=== PATIENT | male | born 1970 | race Hispanic/Latino ===

== ENCOUNTER 2021-08-12 16:05 | Emergency (ER) | payer BC ==
--- OUTSIDE RECORDS SUMMARY | 2021-08-12 16:07 | XMS REPORT | Continuity of Care Document ---
:1970 Author Organization [facility] t Address [address] [place] [address] Dr. Durand [address] [place] [id number] Care Team Providers Name Role Phone Unavailable Unavailable Unavailable Problems This patient has no known problems. Allergies, Adverse Reactions, Alerts This patient has no known allergies or adverse reactions. Medications This patient has no known medications. Procedures This patient has no known procedures. Results This patient has no known results.
[2021-08-12] MEDS ORDERED: ASPIRIN 81 MG CHEWABLE TABLET ONE (16:48)
[2021-08-12 20:18] LABS: Absolute Lymphocytes (CBC) 2.5 K/uL (0.7-4.9); Hematocrit 44.1 % (39.6-49.0); MPV 7.5 fL (7.6-11.3); RBC Red Blood Cell Count 5.33 M/uL (4.33-5.43)
--- NOTE | 2021-08-12 20:28 | RAD REPORT ---
EXAM DESCRIPTION: RAD - Chest Single View - 08/12/2021 8:18 pm CLINICAL HISTORY: CHEST PAIN Chest pain. COMPARISON: <Comparisons> FINDINGS: Portable technique limits examination quality. The lungs are underinflated resulting in vascular crowding. The heart is normal in size. No displaced fractures. IMPRESSION: No acute intrathoracic process suspected.
[2021-08-12 20:48] LABS: Protime INR 0.95
[2021-08-12 20:51] LABS: ALT/SGPT 49 U/L (12-78); AST/SGOT 27 U/L (15-37); Albumin 3.4 g/dL (3.4-5.0); Alkaline Phosphatase 96 U/L (45-117); BUN Blood Urea Nitrogen 11 mg/dL (7-18); Bicarbonate 30 mmol/L (21-32); Bilirubin Direct 0.1 mg/dL (0-0.2); Glucose Level 143 mg/dL (74-106); Magnesium 2.3 mg/dL (1.8-2.4); Potassium 3.4 mmol/L (3.5-5.1); Protein, Total 7.9 g/dL (6.4-8.2); Sodium Level 139 mmol/L (136-145)
[2021-08-12 20:56] LABS: Bilirubin Total 0.5 mg/dL (0.2-1.0); NT PRO-BNP 24 pg/mL (<125)
--- NOTE | 2021-08-12 22:11 | RAD REPORT ---
EXAM DESCRIPTION: CT - Chest For Pe Angio - 08/12/2021 9:58 pm CLINICAL HISTORY: Chest pain. CHEST PAIN COMPARISON: No comparisons TECHNIQUE: CT angiogram of the pulmonary arteries was performed with MIP. All CT scans are performed using dose optimization technique as appropriate and may include automated exposure control or mA/KV adjustment according to patient size. FINDINGS: No evidence of pulmonary thromboembolism. No acute aortic finding demonstrated. The lungs are clear. No significant pericardial or pleural fluid. Moderate thoracic degenerative changes are present. IMPRESSION: No evidence of pulmonary thromboembolism. No acute lung findings.
[2021-08-12 22:46] LABS: Urine Blood Negative (Negative); Urine Glucose Negative (Negative); Urine Protein Negative (Negative); Urine Specific Gravity 1.015 (1.005-1.030)
--- NOTE | 2021-08-12 22:50 | ER ---
Nurse's Notes [facility] Name: Robbin Dixon Jr Age: 51 yrs Sex: Male : 1970 Arrival Date: 08/12/2021 Time: 16:07 Bed 3 Private MD: Sergei Cortez R Diagnosis: Chest pain, unspecified;Hypertensive heart disease without heart failure Presentation: 08/12 16:36 Chief complaint: Patient states: "I am having this sharp pain under my left rib area jd3 that travels straight back to my back to under my shoulder blade. it feels like every time I move it feels like something is pinching.". Coronavirus screen: At this time, the client does not indicate any symptoms associated with coronavirus-19. Ebola Screen: No symptoms or risks identified at this time. Initial Sepsis Screen: Does the patient meet any 2 criteria? No. Patient's initial sepsis screen is negative. Does the patient have a suspected source of infection? No. Patient's initial sepsis screen is negative. Risk Assessment: Do you want to hurt yourself or someone else? Patient reports no desire to harm self or others. Onset of symptoms was August 08, 2021. 16:36 Method Of Arrival: Ambulatory jd3 16:36 Acuity: VILMA 2 jd3 Historical: - Allergies: 16:38 No Known Allergies; jd3 - Home Meds: 16:38 losartan oral [Active]; jd3 - PMHx: 16:38 Hypertensive disorder; jd3 - PSHx: 16:38 None; jd3 - Immunization history:: Adult Immunizations up to date, Client reports receiving the 2nd dose of the Covid vaccine, Flu vaccine is not up to date. - Social history:: Smoking status: Patient denies any tobacco usage or history of. Screenin:24 Abuse screen: Denies threats or abuse. Denies injuries from another. Nutritional lp1 screening: No deficits noted. Tuberculosis screening: No symptoms or risk factors identified. Fall Risk None identified. Assessment: 20:00 General: Appears in no apparent distress. Behavior is calm, cooperative, appropriate lp1 for age. Pain: Complains of pain in left low back Pain currently is 2 out of 10 on a pain scale. Quality of pain is described as stabbing. Neuro: Level of Consciousness is awake, alert, obeys commands, Oriented to person, place, time, situation. Cardiovascular: Patient's skin is warm and dry. Respiratory: Respiratory effort is even, unlabored. GI: No signs and/or symptoms were reported involving the gastrointestinal system. : Denies burning with urination. EENT: No signs and/or symptoms were reported regarding the EENT system. Derm: Skin is pink, warm \\T\\ dry. Musculoskeletal: No deficits noted. 20:23 Reassessment: Patient denies need for pain medication at this time. lp1 22:00 Reassessment: Patient appears in no apparent distress at this time. Patient is alert, lp1 oriented x 3, equal unlabored respirations, skin warm/dry/pink. Reports pain to left flank provoked by movement. Vital Signs: 16:38 BP 183 / 117; Pulse 57; Resp 17 S; Temp 97.4(TE); Pulse Ox 100% on R/A; Weight 124.74 jd3 kg (R); Height 5 ft. 6 in. (167.64 cm) (R); Pain 2/10; 20:23 BP 151 / 89; Pulse 66; Resp 18; Pulse Ox 98% on R/A; Pain 2/10; lp1 20:45 BP 139 / 84; Pulse 60; Resp 18; Pulse Ox 98% on R/A; lp1 21:30 BP 152 / 91; Pulse 61; Resp 18; Pulse Ox 98% on R/A; lp1 22:30 BP 163 / 99; Pulse 63; Resp 18; Pulse Ox 96% on R/A; lp1 16:38 Body Mass Index 44.39 (124.74 kg, 167.64 cm) jd3 ED Course: 16:07 Patient arrived in ED. mr 16:08 Sergei Cortez MD is Private Physician. mr 16:37 Triage completed. jd3 16:40 Arm band placed on. EKG completed in triage. Results shown to MD. jd3 16:42 Anam Warren PA is PHCP. cp 16:42 Jam Donnelly MD is Attending Physician. cp 20:00 Inserted saline lock: 20 gauge in right antecubital area, using aseptic technique. lp1 Blood collected. 20:09 Miley Lindsey, RN is Primary Nurse. lp1 20:20 XRAY Chest (1 view) In Process Unspecified. EDMS 20:24 Patient has correct armband on for positive identification. Placed in gown. Bed in low lp1 position. Call light in reach. 22:00 CT Chest For PE Angio In Process Unspecified. EDMS 22:49 Sergei Cortez MD is Referral Physician. cp 22:58 No provider procedures requiring assistance completed. Patient did not have IV access lp1 during this emergency room visit. Administered Medications: 16:49 Drug: Aspirin Chewable Tablet 324 mg Route: PO; jd3 22:57 Not Given (BP improved): hydrALAZINE 10 mg IVP once lp1 22:57 Not Given (Patient Refused; Denies pain ): Ketorolac 30 mg IVP once lp1 Outcome: 22:50 Discharge ordered by . cp 22:58 Discharged to home ambulatory. lp1 22:58 Condition: good 22:58 Discharge instructions given to patient, Instructed on discharge instructions, follow up and referral plans. medication usage, Demonstrated understanding of instructions, follow-up care, medications, Prescriptions given X 3. 23:03 Patient left the ED. lp1 Signatures: Dispatcher [employer] EDVA AlejandroToya Laura, RN RN lp1 Anam Warren PA PA Jadon Partida RN RN jd3 Corrections: (The following items were deleted from the chart) 16:38 16:38 PMHx: None; jd3 jd3 16:49 16:36 Acuity: VILMA 3 jdiaz jd3
--- NOTE | 2021-08-12 22:50 | EDPHYS ---
Physician Documentation [facility] Name: Robbin Dixon Jr Age: 51 yrs Sex: Male : 1970 Arrival Date: 08/12/2021 Time: 16:07 Bed 3 Private MD: Sergei Cortez R ED Physician Jam Donnelly HPI: 08/12 16:45 This 51 yrs old Male presents to ER via Ambulatory with complaints of Chest cp Pain. 16:45 The patient or guardian reports chest pain that is located primarily in the lateral cp side below left breast. 16:45 Onset: 4 day(s) ago, and improved today. The pain radiates to back. The chest pain is cp described as sharp. 16:45 Duration: The patient or guardian reports a single episode, that is still ongoing, but cp improving. 16:45 Patient reports pain started left lateral chest and below shoulder blade, moving to cp front of chest. Patient worse over the weekend and improved today. Patient denies injury. Admits to not taking prescribed blood pressure medication today. Historical: - Allergies: 16:38 No Known Allergies; jd3 - Home Meds: 16:38 losartan oral [Active]; jd3 - PMHx: 16:38 Hypertensive disorder; jd3 - PSHx: 16:38 None; jd3 - Immunization history:: Adult Immunizations up to date, Client reports receiving the 2nd dose of the Covid vaccine, Flu vaccine is not up to date. - Social history:: Smoking status: Patient denies any tobacco usage or history of. ROS: 16:50 Constitutional: Negative for body aches, chills, fever, poor PO intake. cp 16:50 Eyes: Negative for injury, pain, redness, and discharge. cp 16:50 ENT: Negative for drainage from ear(s), ear pain, sore throat, difficulty swallowing, difficulty handling secretions. 16:50 Neck: Negative for pain with movement, pain at rest, stiffness. 16:50 Cardiovascular: Positive for chest pain, Negative for edema, palpitations. 16:50 Respiratory: Negative for cough, shortness of breath, wheezing. 16:50 Abdomen/GI: Negative for abdominal pain, nausea, vomiting, and diarrhea, constipation. 16:50 : Negative for urinary symptoms, testicular pain 16:50 Skin: Negative for cellulitis, rash. 16:50 Neuro: Negative for altered mental status, headache, syncope, weakness. 16:50 All other systems are negative. Exam: 16:55 ECG was reviewed by the Attending Physician. cp 16:57 Constitutional: The patient appears in no acute distress, alert, awake, cp non-diaphoretic, non-toxic, well developed, well nourished, obese, uncomfortable. 16:57 Head/Face: Normocephalic, atraumatic. cp 16:57 Eyes: Periorbital structures: appear normal, Conjunctiva: normal, no exudate, no injection, Sclera: no appreciated abnormality, Lids and lashes: appear normal, bilaterally. 16:57 ENT: External ear(s): are unremarkable, Nose: is normal, Mouth: Lips: moist, Oral mucosa: pink and intact, moist, Posterior pharynx: Airway: no evidence of obstruction, patent. 16:57 Neck: ROM/movement: is normal, is supple, without pain, no range of motions limitations. 16:57 Chest/axilla: Inspection: normal, Palpation: crepitus, is not appreciated, tenderness, that is mild, of the left lower lateral chest wall. 16:57 Cardiovascular: Rate: normal, Rhythm: regular, Pulses: Pulses are 2+ in right radial artery and left radial artery. Edema: is not appreciated, JVD: is not appreciated. 16:57 Respiratory: the patient does not display signs of respiratory distress, Respirations: normal, no use of accessory muscles, no retractions, labored breathing, is not present, Breath sounds: are clear throughout, no decreased breath sounds, no stridor, no wheezing. 16:57 Abdomen/GI: Inspection: abdomen appears normal, Palpation: abdomen is soft and non-tender, in all quadrants. 16:57 Back: pain, that is mild, of the left subscapular area, ROM is normal, CVA tenderness, is absent, vertebral tenderness, is not appreciated. 16:57 Skin: cellulitis, is not appreciated, no rash present. 16:57 Neuro: Orientation: to person, place \T\ time. Mentation: is normal, Motor: moves all fours, strength is normal, Sensation: is normal, Gait: is steady, at a normal pace, without difficulty. Vital Signs: 16:38 BP 183 / 117; Pulse 57; Resp 17 S; Temp 97.4(TE); Pulse Ox 100% on R/A; Weight 124.74 jd3 kg (R); Height 5 ft. 6 in. (167.64 cm) (R); Pain 2/10; 20:23 BP 151 / 89; Pulse 66; Resp 18; Pulse Ox 98% on R/A; Pain 2/10; lp1 20:45 BP 139 / 84; Pulse 60; Resp 18; Pulse Ox 98% on R/A; lp1 21:30 BP 152 / 91; Pulse 61; Resp 18; Pulse Ox 98% on R/A; lp1 22:30 BP 163 / 99; Pulse 63; Resp 18; Pulse Ox 96% on R/A; lp1 16:38 Body Mass Index 44.39 (124.74 kg, 167.64 cm) jd3 MDM: 19:33 Patient medically screened. cp 22:50 The patient was given aspirin in the Emergency Department. cp 22:50 Differential diagnosis: acute myocardial infarction, acute pericarditis, cholecystitis, cp Cholelithiasis costochondritis, pancreatitis, pleurisy, pneumonia, pneumothorax, pulmonary embolus, stable angina, unstable angina. Data reviewed: vital signs, nurses notes, lab test result(s), EKG, radiologic studies, CT scan, plain films. Test interpretation: by ED physician or midlevel provider: ECG, plain radiologic studies. Counseling: I had a detailed discussion with the patient and/or guardian regarding: the historical points, exam findings, and any diagnostic results supporting the discharge/admit diagnosis, the presence of at least one elevated blood pressure reading (>120/80) during this emergency department visit, lab results, radiology results, the need for outpatient follow up, a family practitioner, to return to the emergency department if symptoms worsen or persist or if there are any questions or concerns that arise at home. Response to treatment: the patient's symptoms have markedly improved after treatment, and as a result, I will discharge patient. Special discussion: Based on the patient's history, exam, and Dx evaluation, there is no indication for emergent intervention or inpatient Tx. It is understood by the patient/guardian that if the Sx's persist or worsen they need to return immediately for re-evaluation. 08/12 19:34 Order name: Basic Metabolic Panel; Complete Time: 21:35 cp 08/12 21:35 Interpretation: Normal except: K 3.4; GLUC 143. cp 08/12 19:34 Order name: CBC with Diff; Complete Time: 20:38 08/12 20:38 Interpretation: Normal except: MPV 7.5. 08/12 19:34 Order name: D-Dimer 08/12 19:34 Order name: LFT's; Complete Time: 21:35 08/12 19:34 Order name: Magnesium; Complete Time: 21:35 08/12 19:34 Order name: NT PRO-BNP; Complete Time: 21:35 08/12 19:34 Order name: PT-INR 08/12 19:34 Order name: Troponin HS; Complete Time: 21:35 08/12 19:34 Order name: XRAY Chest (1 view); Complete Time: 20:38 08/12 20:38 Interpretation: Report review. 08/12 21:36 Order name: CT Chest For PE Angio; Complete Time: 22:22 08/12 22:22 Interpretation: Report reviewed. 08/12 22:47 Order name: Urine Dipstick-Ancillary [facility] 08/12 16:42 Order name: EKG; Complete Time: 16:43 08/12 16:42 Order name: EKG - Nurse/Tech; Complete Time: 16:43 08/12 19:34 Order name: Cardiac monitoring; Complete Time: 20:10 08/12 19:34 Order name: IV Saline Lock; Complete Time: 20:10 08/12 19:34 Order name: Labs collected and sent; Complete Time: 20:10 08/12 19:34 Order name: O2 Per Protocol; Complete Time: 20:10 08/12 19:34 Order name: O2 Sat Monitoring; Complete Time: 20:10 08/12 19:45 Order name: Urine Dipstick-Ancillary (obtain specimen); Complete Time: 22:46 cp EC:55 Rate is 58 beats/min. Rhythm is regular. ME interval is prolonged at 206 msec. QRS cp interval is normal. QT interval is normal. T waves are Inverted in lead aVR. Interpreted by me. Reviewed by me. Administered Medications: 16:49 Drug: Aspirin Chewable Tablet 324 mg Route: PO; jd3 22:57 Not Given (BP improved): hydrALAZINE 10 mg IVP once lp1 22:57 Not Given (Patient Refused; Denies pain ): Ketorolac 30 mg IVP once lp1 Disposition Summary: 08/12/21 22:50 Discharge Ordered Location: Home cp Problem: new cp Symptoms: have improved cp Condition: Stable cp Diagnosis - Chest pain, unspecified cp - Hypertensive heart disease without heart failure cp Followup: cp - With: Sergei Cortez MD - When: 2 - 3 days - Reason: Recheck today's complaints Discharge Instructions: - Discharge Summary Sheet cp - Musculoskeletal Pain cp - Aspirin and Your Heart cp - Form - Blood Pressure Record Sheet cp - How to Take Your Blood Pressure cp Forms: - Medication Reconciliation Form cp - Thank You Letter cp - Antibiotic Education cp - Prescription Opioid Use cp Prescriptions: - Lidoderm 5 % Topical adhesive patch,medicated - apply 1 patch by TOPICAL route once daily; 1 box; Refills: 0, Product Selection cp Permitted - Cyclobenzaprine 10 mg Oral Tablet - take 1 tablet by ORAL route every 8 hours As needed no driving while taking cp medication; 20 tablet; Refills: 0, Product Selection Permitted - Diclofenac Sodium 75 mg Oral Tablet Sustained Release - take 1 tablet by ORAL route 2 times per day; 30 tablet; Refills: 0, Product cp Selection Permitted Addendum: 08/16/2021 21:29 Co-signature as Attending Physician, Jam Donnelly MD. r n Signatures: Dispatcher [employer] EDJam Delacruz MD MD rn Page, Corey, PA PA cp Davies, Jonathon, RN RN jd3 Pena, Laura RN lp1 Corrections: (The following items were deleted from the chart) 08/12 16:38 16:38 PMHx: None; meseret carl
[2021-08-13 07:06] VITALS: TEMP 97.4
[2021-08-13 07:13] VITALS: BP 163/99; O2SAT 96
--- NOTE | 2021-08-14 11:04 | EKG ---
Test Date: 2021-08-12 Test Time: 16:48:39 Non Destructive Evaluation Specialist: BRENDON MEASUREMENT RESULTS: Intervals: Rate: 58 MI: 206 QRSD: 100 QT: 422 QTc: 414 [place]: P: 28 MI: 206 QRS: -22 T: 69 INTERPRETIVE STATEMENTS: Sinus bradycardia Nonspecific T wave abnormality Abnormal ECG Compared to ECG 12/21/2001 08:40:00 Sinus rhythm no longer present T-wave abnormality still present Electronically Signed On 08-14-21 10:58:03 CDT by Floyd Russell
== END 2021-08-12 23:03 | disposition home or self-care (01) ==
LOC: ER 16:05
DX: I11.9 Hypertensive heart disease without heart failure (principal); I10 Essential (primary) hypertension
CPT/HCPCS: 93005; 85025; 80048; 36415; 83735; 85610; 85379; 80076; 81003; 84484; 83880; 71275; 71045; 99284; Q9967

== ENCOUNTER → 2023-07-11 | Emergency (ER) | payer BC ==
[~2023-07-11] MED LIST: CYCLOBENZAPRINE 10 MG TAB ONE; KETOROLAC 30 MG/ML INJ ONE; MORPHINE 4 MG/ML SYR ONE; NA CHLORIDE 0.9% 1,000 ML ONE; ONDANSETRON 4 MG/2 ML VIAL ONE; dexAMETHasone 10 MG/ML VIAL ONE
--- OUTSIDE RECORDS SUMMARY | 2023-07-11 18:03 | XMS REPORT | Continuity of Care Document ---
Author Name Unknown Address [address] [place] [address] [facility] Address [address] [place] [address] Care Team Providers Care Diver Assistant Name Role Phone Sergei Anderson MD Primary Care Physician Derrek Prajapati Attending Clinician [phone] Unknown, Attending Attending Clinician Unavailab DERREK Matson Attending Clinician Unavailable Doctor Unassigned, [place] Attending Clinician U navailable Payers Payer Name Policy Type Policy Number Effective Date Expirati on Date Source Allergies, Adverse Reactions, Alerts Allergy Name Allergy Type Status Severity Reaction(s) Onset Date Inactive Date Treating Clinician Comments Source NO KNOWN ALLERGIE S Drug Class Active [facility] Social History Social Habit Start Date Stop Date Quantity Comments Source Sexual orientation U [facility] Sex Assigned At 1970 00:00:00 1970 00:00:00 [facility] Smoking Status Start Date Stop Date Source Tobacco smoking consumption unknown [facility] Medications Ordered Medication Name Filled Medication Name Start Date Stop Date Current Medication? Ordering Clinician Indication Dosage Frequency Signature (SIG) Comments Components Source losartan potassium (LOSARTAN ORAL) 06-02 09:59: 27 Yes Take by mouth. [facility] losartan potassium (LOSARTAN ORAL) 06-02 09:59: 27 Yes Take by mouth. [facility] nirmatrelvi r-ritonavir (PAXLOVID) 300 mg (150 mg x 2)-100 mg tablet 06-02 00:00: 00 Yes [id number] 3{tbl} Take 3 tablets by mouth in the morning and 3 tablets in the evening. [facility] nirmatrelvi r-ritonavir (PAXLOVID) 300 mg (150 mg x 2)-100 mg tablet 06-02 00:00: 00 Yes [id number] 3{tbl} Take 3 tablets by mouth in the morning and 3 tablets in the evening. [facility] Vital Signs Vital Name Observation Time Observation Value Comments Dionne chopra Systolic blood pressure 2023-06-02 15:59:00 144 mm[Hg] [facility] Diastolic blood pressure 2023-06-02 15:59:00 94 mm[Hg] [facility] Heart rate 2023-06-02 15:59:00 66 /min [facility] Body temperature 2023-06-02 15:59:00 36.67 Graciela [facility] Respiratory rate 2023-06-02 15:59:00 16 /min [facility] Body height 2023-06-02 15:59:00 167.6 cm [facility] Body weight 2023-06-02 15:59:00 130.182 kg [facility] BMI 2023-06-02 15:59:00 46.32 kg/m2 [facility] Oxygen saturation in Arterial blood by Pulse oximetry 2023-06-02 15:59:00 96 /min [facility] Procedures Procedure Date / Time Performed Performing Clinicia n Source POCT SARS-COV-2 ANTIGEN (BINAX NOW) 2023-06-02 16:29:00 Derrek Marrufo [facility] POCT MOLECULAR FLU 2023-06-02 15:59:00 Unknown, Attend [facility] ASSIGNMENT OF BENEFITS 2023-06-02 15:40:23 Docto r Unassigned, [place] [facility] Encounters Start Date/Time End Date/Time Encounter Type Admission Type Attending Clinicians Care Facility Care Department Encounter ID Source 2023-06-02 10:00:00 2023-06-02 10:20:00 Urgent Care Derrek Marrufo Unknown, Attending [facility] [id number] [facility] 2023-06-02 10:00:00 2023-06-02 10:00:00 Outpatient Duy DERREK MARRUFO [facility] [id number] [facility] 2023-06-02 00:00:00 2023-06-02 00:00:00 Orders Only Doctor Unassigned, [place] [facility] [id number] [facility] Results Test Description Test Time Test Comments Results Result Co mments Source [facility] SARS-COV-2 ANTIGEN (BINAX NOW)2023-06-02 16:29:00* Test Item Value Reference Range Interpretation Comme nts POCT SARS-COV-2 ANTIGEN (channing t code = 11625-5) Positive Not Detected A On board controls acceptable with C Line (test code = 3574) Yes Lab Interpretation (test cod e = 23929-9) Abnormal [facility] Molecular [id number] 16:11:00* Test Item Value Reference Range Interpretation Comme nts POCT Molecular FluA (test co de = 36406-1) Negative Negative POCT Molecular FluB (test co de = 17965-1) Negative Negative Lab Interpretation (test cod e = 08181-8) Normal [facility] Molecular [id number] 16:11:00* Test Item Value Reference Range Interpretation Comme nts POCT Molecular FluA (test co de = 88622-9) Negative Negative POCT Molecular FluB (test co de = 84759-8) Negative Negative Lab Interpretation (test cod e = 16807-2) Normal [facility]
[2023-07-11 18:34] LABS: Specific Gravity > 1.030 (1.005-1.030); Urine Bacteria None Seen /HPF (<20); Urine Bilirubin NEGATIVE (Negative); Urine Blood Negative (Negative); Urine Clarity Turbid (Clear); Urine Color Yellow (Yellow); Urine Glucose NEGATIVE (Negative); Urine Mucus 4+ /HPF (None Seen); Urine Protein 1+ (Negative); Urine RBC <5 /HPF (None Seen); Urine Urobilinogen 1+ (Normal); Urine pH 5.5 (5.0-7.0)
[2023-07-11 18:37] LABS: Absolute Basophils 0.1 K/uL (0-0.5); Absolute Eosinophils 0.2 K/uL (0-0.5); Absolute Lymphocytes (CBC) 2.5 K/uL (0.7-4.9); MPV 7.9 fL (7.6-11.3)
[2023-07-11 18:45] LABS: Eosinophils % 3.1 % (0-4.4); Hematocrit 45.8 % (39.6-49.0); Lymphocytes % 30.8 % (15.3-44.8); MCV 83.7 fL (80-100); Platelets 240 thou/uL (152-406); RBC Red Blood Cell Count 5.47 M/uL (4.33-5.43)
[2023-07-11 18:48] LABS: Albumin 3.5 g/dL (3.4-5.0); Albumin/Globulin Ratio 0.7 (1.1-1.8); Anion Gap 8.3 mEq/L (5.0-15.0); Bilirubin Total 0.4 mg/dL (0.2-1.0); Globulin 4.7 g/dL (2.3-3.5); Potassium 3.3 mEq/L (3.5-5.1); Protein, Total 8.2 g/dL (6.4-8.2)
--- NOTE | 2023-07-11 19:36 | RAD REPORT ---
EXAM DESCRIPTION: CTAbdomen Pelvis W Contrast - 07/11/2023 7:25 pm CLINICAL HISTORY: FLANK PAIN COMPARISON: No comparisons TECHNIQUE: CT of the abdomen and pelvis was performed. All CT scans are performed using dose optimization technique as appropriate and may include automated exposure control or mA/KV adjustment according to patient size. FINDINGS: Lower chest: No acute abnormality. Liver: No acute abnormality or suspicious lesions. Biliary: No biliary ductal dilatation. Stomach: No significant focal abnormality. Duodenum: No significant focal abnormality. Pancreas: No significant abnormality. Spleen: No significant abnormality. Adrenal: No suspicious lesions. Kidney/ureter: No hydronephrosis. No renal calculi. Retroperitoneum: No retroperitoneal adenopathy. Vascular: No aneurysm. Bowel: No significant focal abnormality. Normal appendix. Peritoneum: No ascites or free air. Fat containing inguinal hernias. Bladder: Bladder wall thickening versus underdistention. Reproductive: Mild prostatomegaly. Bones: No acute fracture. Other: n/a IMPRESSION: No acute intra-abdominal or pelvic finding. Normal appendix. No urinary tract calculi or hydronephrosis. Mild prostatomegaly.
--- NOTE | 2023-07-11 20:36 | ER ---
Nurse's Notes [facility] Name: Robbin Dixon Jr Age: 53 yrs Sex: Male : 1970 Arrival Date: 07/11/2023 Time: 18:00 Bed 20 Private MD: Diagnosis: Low back pain Presentation: 07/10 18:03 Chief complaint: Patient states: Back pain, fluctuates in severity, onset about a month nj1 ago, has worsen. Has been taking OTC meds. States he noticed his urine was cloudy a few days ago. 18:03 Coronavirus screen: Vaccine status: Patient reports receiving the 2nd dose of the covid nj1 vaccine. Ebola Screen: Patient denies travel to an Ebola-affected area in the 21 days before illness onset. Initial Sepsis Screen: Does the patient meet any 2 criteria? No. Patient's initial sepsis screen is negative. Does the patient have a suspected source of infection? No. Patient's initial sepsis screen is negative. Risk Assessment: Do you want to hurt yourself or someone else? Patient reports no desire to harm self or others. Onset of symptoms was June 2023. 18:03 Method Of Arrival: Ambulatory [facility] 18:03 Acuity: VILMA 3 nj1 Historical: - Allergies: 18:18 No Known Allergies; nj1 - PMHx: 18:18 Hypertensive disorder; Sleep apnea; nj1 - Immunization history:: Client reports receiving the 2nd dose of the Covid vaccine. - Social history:: Smoking status: Patient denies any tobacco usage or history of. Screenin:28 [facility] ED Fall Risk Assessment (Adult) History of falling in the last 3 months, as6 including since admission No falls in past 3 months (0 pts) Confusion or Disorientation No (0 pts) Intoxicated or Sedated No (0 pts) Impaired Gait No (0 pts) Mobility Assist Device Used No (0 pt) Altered Elimination No (0 pt) Score/Fall Risk Level 0 - 2 = Low Risk Oriented to surroundings, Maintained a safe environment, Educated pt \T\ family on fall prevention, incl call for assistance when getting out of bed, Assessed \T\ reinforced patient's understanding of fall precautions, Hourly rounding (assess needs \T\ fall precautionary measures) done. Abuse screen: Denies threats or abuse. Denies injuries from another. Nutritional screening: No deficits noted. Tuberculosis screening: No symptoms or risk factors identified. Assessment: 18:25 General: Appears in no apparent distress. uncomfortable, Behavior is calm, cooperative. as6 Pain: Complains of pain in low back area. Neuro: Level of Consciousness is awake, alert, obeys commands, Oriented to person, place, time, situation. Cardiovascular: Capillary refill < 3 seconds Patient's skin is warm and dry. Respiratory: Respiratory effort is even, unlabored, Respiratory pattern is regular, symmetrical. GI: No deficits noted. No signs and/or symptoms were reported involving the gastrointestinal system. : Reports pain in bilateral flank(s). EENT: No deficits noted. No signs and/or symptoms were reported regarding the EENT system. Derm: Skin is intact, is healthy with good turgor. Musculoskeletal: Range of motion: limited in back. 18:57 Reassessment: pt report slight improvements with pain. as6 20:00 General: Appears in no apparent distress. uncomfortable, Behavior is calm, cooperative. jw7 20:00 Pain: Complains of pain in back and low back area Pain does not radiate. Pain currently jw7 is 6 out of 10 on a pain scale. Quality of pain is described as sharp, throbbing, Pain began gradually, Is continuous. Neuro: Level of Consciousness is awake, alert, obeys commands, Oriented to person, place, time, situation. Cardiovascular: Heart tones S1 S2 present Capillary refill < 3 seconds Patient's skin is warm and dry. Respiratory: Airway is patent Trachea midline Respiratory effort is even, unlabored, Respiratory pattern is regular, symmetrical, Breath sounds are clear bilaterally. GI: No deficits noted. No signs and/or symptoms were reported involving the gastrointestinal system. : No deficits noted. No signs and/or symptoms were reported regarding the genitourinary system. EENT: No deficits noted. No signs and/or symptoms were reported regarding the EENT system. Derm: Skin is intact, is healthy with good turgor, Skin is dry, Skin is normal, Skin temperature is warm. Musculoskeletal: Circulation, motion, and sensation intact. Range of motion: limited in back. 20:45 Reassessment: Patient appears in no apparent distress at this time. No changes from jw7 previously documented assessment. Patient and/or family updated on plan of care and expected duration. Pain level reassessed. Patient is alert, oriented x 3, equal unlabored respirations, skin warm/dry/pink. Vital Signs: 18:03 BP 152 / 97; Pulse 76; Resp 16; Temp 98.1; Pulse Ox 100% on R/A; Weight 130.18 kg; nj1 Height 5 ft. 6 in. ; Pain 8/10; 18:54 BP 135 / 95; Pulse 65; Resp 18 S; Pulse Ox 99% on R/A; as6 20:30 BP 133 / 89; Pulse 59; Resp 16 S; Pulse Ox 98% on R/A; jw7 18:03 Body Mass Index 46.32 (130.18 kg, 167.64 cm) nj1 18:03 Pain Scale: Adult [facility] ED Course: 18:02 Patient arrived in ED. rg4 18:02 Whit Payan PA-C is PHCP. sb4 18:02 Anam Euceda MD is Attending Physician. sb4 18:06 Nathaniel Hayes, IAM is Primary Nurse. as6 18:18 Triage completed. nj1 18:18 Arm band placed on. nj1 18:20 Inserted saline lock: 20 gauge in right forearm, using aseptic technique. as6 18:20 Initial lab(s) drawn, by va, sent to lab. Urine collected: clean catch specimen, clear. as6 18:28 Bed in low position. Call light in reach. Side rails up X 1. Pulse ox on. NIBP on. as6 19:26 CT Abd/Pelvis - IV Contrast Only In Process Unspecified. EDMS 20:00 Provided Education on: Use of call light. jw7 20:50 No provider procedures requiring assistance completed. IV discontinued, intact, jw7 bleeding controlled, No redness/swelling at site. Pressure dressing applied. Administered Medications: 18:23 Drug: NS 0.9% IV 1000 ml IV at 1 bolus Per protocol; 1000 mL bolus Route: IV; Rate: 1 as6 bolus; Site: right forearm; 20:00 Follow up: Response: No adverse reaction; IV Status: Completed infusion; IV Intake: jw7 1000ml 18:23 Drug: Ondansetron IVP 4 mg IVP once; over 2 minutes Route: IVP; Site: right forearm; as6 20:00 Follow up: Response: No adverse reaction jw7 18:23 Drug: morphine IVP or IV 4 mg IVP once over 4 mins Route: IVP; Infused Over: 4 mins; as6 Site: right forearm; 20:00 Follow up: Response: No adverse reaction; Marked relief of symptoms; Pain is decreased jw7 20:25 Drug: Decadron - Dexamethasone IVP 10 mg IVP once Route: IVP; Site: right antecubital; jw7 21:20 Follow up: Response: No adverse reaction jw7 20:25 Drug: Ketorolac IVP 15 mg IVP once Route: IVP; Site: right antecubital; jw7 21:20 Follow up: Response: No adverse reaction; Marked relief of symptoms; Pain is decreased jw7 20:25 Drug: Cyclobenzaprine PO 10 mg PO once Route: PO; jw7 21:20 Follow up: Response: No adverse reaction jw7 Medication: 18:28 VIS not applicable for this client. as6 Intake: 20:00 IV: 1000ml; Total: 1000ml. jw7 Outcome: 20:35 Discharge ordered by . sb4 20:50 Discharged to home ambulatory, with family, jw7 20:50 Condition: stable 20:50 Discharge instructions given to patient, Instructed on discharge instructions, follow up and referral plans. medication usage, Demonstrated understanding of instructions, follow-up care, medications, Prescriptions given X 3, 21:22 Patient left the ED. jw7 Signatures: Dispatcher [employer] Jahaira Serrano Ashby, RN RN as6 Vira Pfeiffer RN RN jw7 Whit Payan PA-C PADede sb4 Betty Thibodeaux RN RN nj1
--- NOTE | 2023-07-11 20:36 | EDPHYS ---
Physician Documentation [facility] Name: Robbin Dixon Jr Age: 53 yrs Sex: Male : 1970 Arrival Date: 07/11/2023 Time: 18:00 Bed 20 Private MD: ED Physician Anam Euceda HPI: 07/10 18:09 This 53 yrs old Male presents to ER via Unassigned with complaints of Back sb4 Pain. 18:09 Patient reports lower back pain for about 1 month now. However, today it got sb4 significantly worse. He states the pain is in his bilateral flanks and radiates up towards his rib cage. He also endorses some cloudy urine. He denies any hematuria, burning with urination, fever, nausea, vomiting. He does endorse decreased appetite. He's denies any injury to the back. States he has had pulled muscles in his back for and does not feel like this. He has been taking Excedrin and Advil without significant relief in pain. Historical: - Allergies: 18:18 No Known Allergies; nj1 - PMHx: 18:18 Hypertensive disorder; Sleep apnea; nj1 - Immunization history:: Client reports receiving the 2nd dose of the Covid vaccine. - Social history:: Smoking status: Patient denies any tobacco usage or history of. ROS: 18:09 Constitutional: Negative for fever, chills, and weight loss, sb4 18:09 Back: Positive for pain at rest, flank pain, bilaterally, 18:09 All other systems are negative, Exam: 18:09 Head/Face: Normocephalic, atraumatic. Eyes: Extra-ocular motions intact. Periorbital sb4 areas with no swelling, redness, or edema. ENT: Mucous membranes moist. Cardiovascular: Regular rate and rhythm with a normal S1 and S2. Respiratory: Lungs have equal breath sounds bilaterally, clear to auscultation and percussion. No rales, rhonchi or wheezes noted. No increased work of breathing, no retractions or nasal flaring. Abdomen/GI: Soft, non-tender, no distension. Skin: Warm, dry with normal turgor. Normal color with no rashes, no lesions, and no evidence of cellulitis. MS/ Extremity: Pulses equal, no cyanosis. Neurovascular intact. Full, normal range of motion. Neuro: Awake and alert, GCS 15, oriented to person, place, time, and situation. Motor strength 5/5 in all extremities. Sensory grossly intact. 18:09 Constitutional: The patient appears alert, awake, obese, uncomfortable, 18:09 Back: pain, that is moderate, ROM is painful, with all movement, normal spinal alignment noted, CVA tenderness, is absent, vertebral tenderness, is not appreciated, muscle spasm, is not present, 18:09 Neuro: Exam negative for acute changes, focal neuro deficits, motor deficits, sensory deficits, cerebellar deficits, altered mental status, gait abnormality, Vital Signs: 18:03 BP 152 / 97; Pulse 76; Resp 16; Temp 98.1; Pulse Ox 100% on R/A; Weight 130.18 kg; nj1 Height 5 ft. 6 in. ; Pain 8/10; 18:54 BP 135 / 95; Pulse 65; Resp 18 S; Pulse Ox 99% on R/A; as6 20:30 BP 133 / 89; Pulse 59; Resp 16 S; Pulse Ox 98% on R/A; jw7 18:03 Body Mass Index 46.32 (130.18 kg, 167.64 cm) nj1 18:03 Pain Scale: Adult nj1 MDM: 18:04 Patient medically screened. sb4 18:09 Differential diagnosis: Fracture Hydronephrosis Joint Injury Ligament Injury sb4 Pyelonephritis ruptured disc, spinal injury, sprain, Ureterolithiasis. 20:15 Data reviewed: vital signs, nurses notes, lab test result(s), radiologic studies, and sb4 as a result, I will discharge patient. Historians other than the Patient: Spouse/Significant Other: . Counseling: I had a detailed discussion with the patient and/or guardian regarding the historical points, exam findings, and any diagnostic results supporting the discharge/admit diagnosis, lab results, radiology results, the need for outpatient follow up, sprine, to return to the emergency department if symptoms worsen or persist or if there are any questions or concerns that arise at home. 03 18:09 Order name: CBC with Diff; Complete Time: 18:49 sb4 03 18:09 Order name: CMP; Complete Time: 18:49 sb4 03 18:09 Order name: Urinalysis w/ reflexes; Complete Time: 18:35 sb4 03 18:09 Order name: CK; Complete Time: 18:49 sb4 03 18:09 Order name: CT Abd/Pelvis - IV Contrast Only; Complete Time: 19:40 sb4 07/10 18:09 Order name: IV Saline Lock; Complete Time: 18:27 sb4 07/10 18:09 Order name: Labs collected and sent; Complete Time: 18:27 sb4 Administered Medications: 18:23 Drug: NS 0.9% IV 1000 ml IV at 1 bolus Per protocol; 1000 mL bolus Route: IV; Rate: 1 as6 bolus; Site: right forearm; 20:00 Follow up: Response: No adverse reaction; IV Status: Completed infusion; IV Intake: jw7 1000ml 18:23 Drug: Ondansetron IVP 4 mg IVP once; over 2 minutes Route: IVP; Site: right forearm; as6 20:00 Follow up: Response: No adverse reaction jw7 18:23 Drug: morphine IVP or IV 4 mg IVP once over 4 mins Route: IVP; Infused Over: 4 mins; as6 Site: right forearm; 20:00 Follow up: Response: No adverse reaction; Marked relief of symptoms; Pain is decreased jw7 20:25 Drug: Decadron - Dexamethasone IVP 10 mg IVP once Route: IVP; Site: right antecubital; jw7 21:20 Follow up: Response: No adverse reaction jw7 20:25 Drug: Ketorolac IVP 15 mg IVP once Route: IVP; Site: right antecubital; jw7 21:20 Follow up: Response: No adverse reaction; Marked relief of symptoms; Pain is decreased jw7 20:25 Drug: Cyclobenzaprine PO 10 mg PO once Route: PO; jw7 21:20 Follow up: Response: No adverse reaction jw7 Disposition Summary: 07/11/23 20:35 Discharge Ordered Notes: Location: Home sb4 Problem: an acute exacerbation sb4 Symptoms: have improved sb4 Condition: Stable sb4 Diagnosis - Low back pain sb4 Followup: sb4 - With: Private Physician - When: As needed - Reason: Further diagnostic work-up, Recheck today's complaints, Re-evaluation by your physician Discharge Instructions: - Discharge Summary Sheet sb4 - Acute Back Pain, Adult sb4 - Musculoskeletal Pain sb4 Forms: - Thank You Letter sb4 - Patient Portal Instructions sb4 - Leadership Thank You Letter sb4 Prescriptions: - Cyclobenzaprine 10 mg Oral Tablet - take 1 tablet ORAL route every 8 hours As needed; 30 tablet; Refills: 0, sb4 Product Selection Permitted - Diclofenac Sodium 75 mg Oral Tablet Sustained Release - take 1 tablet ORAL route 2 times per day; 30 tablet; Refills: 0, Product sb4 Selection Permitted - Medrol (Loco) 4 mg Oral Tablets, Dose Pack - take 1 tablet ORAL route as directed - follow package instructions; 1 packet; sb4 Refills: 0, Product Selection Permitted Signatures: Dispatcher [employer] Nathaniel Armenta RN RN as6 Vira Pfeiffer RN RN jw7 Whit Payan PADede PADede sb4 Betty Thibodeaux RN RN nj1
[2023-07-11 21:47] VITALS: BP 133/89; TEMP 98.1; O2SAT 98
== END ==
LOC: ER 18:00
DX: M54.50 Low back pain, unspecified (principal)
CPT/HCPCS: 85025; 81001; 36415; 82550; 80053; 74177; 99284; Q9967; J1100; J2405; J7030